=== PATIENT | female | born 1940 | race Caucasian/White ===

== ENCOUNTER 2022-03-15 15:44 | Inpatient (IN) | payer OTHER ==
[~2022-03-15] VITALS: Ht 160 cm; Wt 59.0 kg
[2022-03-15] VITALS (9 sets, daily range): BP systolic 80–143
--- NOTE | 2022-03-15 15:44 | NUR ---
BROUGHT IN BY [facility] AND [facility], PLACED IN BED #2 AND TRIAGED. REPORT GIVEN TO MURALI
--- NOTE | 2022-03-15 15:52 | NUR ---
EKG performed at BS. Physician given copy of EKG for review.
--- NOTE | 2022-03-15 15:53 | NUR ---
ER at bedside examining patient.
[2022-03-15] MEDS ORDERED: DORZ10DR9 EACH EYE (15:54)
[2022-03-15] MEDS ORDERED: XALEYE OP (15:54)
[2022-03-15] MEDS ORDERED: PRO40 PO (15:55)
[2022-03-15] MEDS ORDERED: FAMO40TA7 PO (15:55)
--- NOTE | 2022-03-15 15:55 | NUR ---
Stephane snider in [facility] - 03/15/22 at 1723 by [email or web address] Epi 1mg given IV push.
--- NOTE | 2022-03-15 15:55 | NUR ---
Epi 0.1mg given IV push.
[2022-03-15] MEDS ORDERED: SYN50 PO (15:57)
[2022-03-15] MEDS ORDERED: APIX2.5T PO (15:57)
[2022-03-15] MEDS ORDERED: AMIO200T66 PO (15:58)
[2022-03-15] MEDS ORDERED: METO5SOL PO (15:59)
[2022-03-15] MEDS ORDERED: FURO-149 PO (16:00)
[2022-03-15] MEDS ORDERED: EPINEPHrine JECT 0.1 MG/ML SYR IVP ONE (16:00)
--- NOTE | 2022-03-15 16:04 | NUR ---
Chest X-Ray being done at bedside.
--- NOTE | 2022-03-15 16:05 | NUR ---
Medication reconciliation completed with information provided by patient. Any prior medication reconciliation on file was reviewed and corrected.
--- NOTE | 2022-03-15 16:19 | NUR ---
vascular technologist sonographer at bedside.
--- NOTE | 2022-03-15 16:19 | NUR ---
Covid swab done and sent to lab.
[2022-03-15 16:36] LABS: BASOPHILS % (AUTO) 0.5 % (0.0-2.0); HEMOGLOBIN 10.4 g/dL (12.0-16.0); LYMPHOCYTES % (AUTO) 28.4 % (20.5-51.5); MEAN CORPUSCULAR HEMOGLOBIN 29 pg (27-31); MEAN CORPUSCULAR HGB CONC 32 % (32-36); MEAN CORPUSCULAR VOLUME 90 fL (79.0-98.0); MONOCYTES # (AUTO) 0.5 K/uL (0.0-1.0); MONOCYTES % (AUTO) 7.1 % (1.7-9.3); NEUTROPHILS # (AUTO) 4.6 K/uL (1.8-7.7); PLATELET COUNT (AUTO) 272 K/uL (130-430); RED BLOOD CELL COUNT(AUTO) 3.57 MIL/uL (4.2-6.2); RED CELL DISTRIBUTION WIDTH 18.2 % (9.0-15.0); WHITE BLOOD COUNT (AUTO) 7.2 K/uL (4.8-10.8)
[2022-03-15 16:41] LABS: ANION GAP 11 (5-15); CALCIUM 7.6 mg/dL (8.4-11.0); CHLORIDE 106 mmol/L (98-107); CREATININE 1.37 mg/dL (0.55-1.30); GLUCOSE 147 mg/dL (70-99); POTASSIUM 3.5 mmol/L (3.5-5.1); SODIUM SERUM 139 mmol/L (136-145); UREA NITROGEN, BLOOD 24 mg/dL (8-21)
--- NOTE | 2022-03-15 16:43 | NUR ---
EJ done on pt to right side using sterile technique by Dr. Matt and guided ultrasound. Pt is A&Ox4. Skin intact. No sob. Pt states she feels nauseous. HR at 40 and BP at 90/31, Placed pt on NC 6L and O2 saturation at 99%. Dr. Matt aware of vital signs. Pt moved to bed #1. All neuro checks within normal limits. Bed in lowest position.
[2022-03-15 16:45] LABS: PROTHROMBIN TIME 10.4 SECS (9.5-12.5)
[2022-03-15 17:04] LABS: ALANINE AMINOTRANSFERASE 70 U/L (12-78); ALBUMIN 3.2 g/dL (3.4-4.8); ASPARTATE AMINOTRANSFERASE 59 U/L (10-37); FREE T4 (FREE THYROXINE) 1.4 ng/dl (0.8-1.5); THYROID STIMULATING HORMONE 8.22 uIu/mL (0.36-3.74); TOTAL BILIRUBIN 0.3 mg/dL (0.0-1.0)
--- NOTE | 2022-03-15 17:37 | NUR ---
Admit bed requested Patient will be admitted to care of . Admitted to ICU unit. Diagnosis HeartBlock Inpatient (Yes or No) Yes Observation (Yes or No) No Orientation concerns or request close to nursing station (Yes or No) No Covid Status Negative On vent or bipap No Isolation requirements No Needs a sitter No From Home (Yes or if No enter name of facility) Yes Requires Dialysis (Yes or No) No Med Rec Completed (Yes of No) Yes
[2022-03-15] MEDS ORDERED: D5/0.45 NS 1,000 ML IV ONE (18:00)
--- NOTE | 2022-03-15 18:26 | NUR ---
Patient will be admitted to care of Dr. Scott. Admitted to ICU unit. Will go to room 2. Belongings list completed. Complete and up to date summary report printed. SBAR report to be given at bedside with opportunity for questions.
--- NOTE | 2022-03-15 18:35 | NUR ---
Stat consult called to Dr. Sully Scott's exchange.
--- NOTE | 2022-03-15 18:50 | NUR ---
Consult called to Dr. Mcguire who called back right away. Informed to continue to call cardiology as this is a cardiology issue and should respond to the consult to direct care.
--- NOTE | 2022-03-15 19:29 | NUR ---
ENDORSEMENT: REPORT GIVEN TO CHANTAL PRATT. DR. ALIYAH Gillette ( GEAR TOOTH GRINDING MACHINE OPERATOR) AT THE BEDSIDE.
[2022-03-15] MEDS ORDERED: DOPamine PREMIX 250 ML IV PRN (20:00)
[2022-03-15] MEDS ORDERED: ONDANSETRON HCL 4 MG/2 ML VIAL IVP PRN (21:15)
[2022-03-15] MEDS: ACETAMINOPHEN 325 MG TABLET PO PRN (22:03)
[2022-03-15] MEDS ORDERED: FUROSEMIDE 20 MG/2 ML VIAL ONE ×2 (22:35→23:40)
--- NOTE | 2022-03-15 22:38 | NUR ---
CALLED BY MEGGAN SUN ABOUT PT DESATURATION. PT EXHIBITED INCREASED ANXIETY AND CONTINUALLY REMOVED NASAL CANNULA. PT SATURATION DROPPED TO 85 AND SIMPLE MASK AT 10L. SATURATION STILL DID NOT STABLIZE AND PT CONTINUED TO DESAT. PT WAS THEN PLACED ON FLUSHED NRB AND LASIX WAS PUSHED TO HELP. WILL MONITOR PT FOR SATURATION.
[2022-03-15] MEDS ORDERED: FUROSEMIDE 20 MG/2 ML VIAL IVP ONE (22:45)
[2022-03-15] MEDS ORDERED: KETAMINE HCL 500 MG/10 ML VIAL ONE (23:17)
[2022-03-15] MEDS ORDERED: EPINEPHrine JECT 0.1 MG/ML SYR ONE (23:26)
[2022-03-15] MEDS ORDERED: EPINEPHrine HCL 1 MG/ML VIAL ONE ×2 (23:28→23:33)
[2022-03-15] MEDS ORDERED: FUROSEMIDE 40 MG/4 ML VIAL ONE (23:40)
[2022-03-16] VITALS (40 sets, daily range): BP systolic 96–142
[2022-03-16] MEDS ORDERED: EPINEPHrine HCL 10 MG in NS 240 ML IV PRN ×2 (00:15→14:00)
[2022-03-16] MEDS ORDERED: FUROSEMIDE 40 MG/4 ML VIAL IVP ONE (00:15)
[2022-03-16] MEDS ORDERED: MIDAZOLAM IN NACL,ISO-OSMOT/PF 100 ML IV PRN ×3 (00:15→07:00)
[2022-03-16] MEDS ORDERED: KETAMINE 30 MG/3 ML SYRINGE IVP ONE (00:15)
[2022-03-16] MEDS ORDERED: MORPHINE SULFATE IN 0.9 % NACL 100 ML IV PRN ×2 (00:15)
[2022-03-16] MEDS ORDERED: SUCCINYLCHOLINE CHLORIDE 20 MG/ML(QUELICIN) IVP ONE ×2 (00:15→09:00)
[2022-03-16] MEDS ORDERED: NALOXONE HCL 0.4 MG/ML AMP (NARCAN) IVP PRN ×3 (00:15→07:00)
[2022-03-16] MEDS ORDERED: MORPHINE SULFATE IN 0.9 % NACL 100 ML IV ONE (00:20)
[2022-03-16] MEDS ORDERED: MIDAZOLAM IN NACL,ISO-OSMOT/PF 100 ML IV ONE (00:22)
[2022-03-16] MEDS: LEVOTHYROXINE SODIUM 0.05 MG TABLET PO SCH ×2 (03:48→12:00)
[2022-03-16 06:33] LABS: BASOPHILS % (AUTO) 0.3 % (0.0-2.0); HEMATOCRIT 33.8 % (36-48); HEMOGLOBIN 10.9 g/dL (12.0-16.0); LYMPHOCYTES # (AUTO) 0.7 K/uL (1.0-5.5); LYMPHOCYTES % (AUTO) 6.2 % (20.5-51.5); MEAN CORPUSCULAR HEMOGLOBIN 29 pg (27-31); MEAN CORPUSCULAR HGB CONC 32 % (32-36); MEAN CORPUSCULAR VOLUME 89 fL (79.0-98.0); MONOCYTES % (AUTO) 8.1 % (1.7-9.3); NEUTROPHILS % (AUTO) 85.4 % (40.0-70.0); PLATELET COUNT (AUTO) 262 K/uL (130-430); RED BLOOD CELL COUNT(AUTO) 3.78 MIL/uL (4.2-6.2); WHITE BLOOD COUNT (AUTO) 11.7 K/uL (4.8-10.8)
[2022-03-16 06:47] LABS: ANION GAP 14 (5-15); CALCIUM 7.9 mg/dL (8.4-11.0); CHLORIDE 105 mmol/L (98-107); CREATININE 1.29 mg/dL (0.55-1.30); GLUCOSE 205 mg/dL (70-99); PHOSPHORUS 4.4 mg/dL (2.7-4.5); SODIUM SERUM 139 mmol/L (136-145); UREA NITROGEN, BLOOD 21 mg/dL (8-21)
--- NOTE | 2022-03-16 07:22 | NUR ---
RT NOTES FIO2 TO 0.60 PER ABG RESULT AND TITRATION ORDER. NO ADVERSE REACTIONS NOTED. WILL MONITOR PT. RN NOTIFIED
--- NOTE | 2022-03-16 07:33 | NUR ---
Assessed patient at bedside with stable vital signs. Patient is currently on sedation, pain and vasopressor medication IV continuous drips. Patient do not appear distressed or in pain. Lung sounds are clear on entry and diminished on bases. Patient is currently on transcutaneous pacer with MA 70 and 74 PPM.
[2022-03-16 07:35] LABS: POTASSIUM 3.9 mmol/L (3.5-5.1)
[2022-03-16] MEDS: PANTOPRAZOLE SODIUM 40 MG TAB PO SCH (09:00)
[2022-03-16] MEDS: APIXABAN 2.5 MG TABLET PO SCH ×2 (09:00→21:00)
--- NOTE | 2022-03-16 09:27 | NUR ---
RT NOTES FIO2 TO 0.40 per titration order. No adverse reactions noted. will monitor pt. RN aware.
[2022-03-16] MEDS ORDERED: THROMBIN (BOVINE) 5000 UNITS/ VIAL TP ONE (09:55)
[2022-03-16] MEDS: METOCLOPRAMIDE HCL 10 MG TABLET PO SCH ×2 (12:00→20:52)
[2022-03-16] MEDS: DORZOLAMIDE 2% OPHTHALMIC SOLN 5ML OP SCH ×2 (12:00→21:00)
[2022-03-16] MEDS: FAMOTIDINE 20 MG TABLET PO SCH (12:00)
--- NOTE | 2022-03-16 12:00 | NUR ---
pulled ett back 1cm from 21cm lip line to 20cm lip line
[2022-03-16] MEDS: MORPHINE SULFATE IN 0.9 % NACL 100 ML IV PRN (13:37)
[2022-03-16] MEDS: D5/0.45 NS 1,000 ML IV SCH (17:17)
[2022-03-16 17:39] LABS: PROTHROMBIN TIME 10.4 SECS (9.5-12.5)
--- NOTE | 2022-03-16 19:30 | NUR ---
RECEIVED REPORT ON PATIENT FROM [facility]. ASSUMED CARE, AND STARTED ASSESSMENT. PICC LINE NURSE IS AT THE BEDSIDE INSERTING A PICC LINE TO THE RIGHT UPPER ARM. tHE LINE WAS XRAYED AND OK'D FOR USE. WILL CONTINUE TO MONITOR AND ASSESS FOR SAFETY AND COMFORT.
[2022-03-16] MEDS: LATANOPROST 2.5 ML DROPS (XALATAN) OP SCH (21:00)
[2022-03-17] VITALS (42 sets, daily range): BP systolic 93–148
--- NOTE | 2022-03-17 04:00 | NUR ---
COMPLETE BED BATH AND LINEN CHANGE GIVEN. NO BOWEL MOVEMENT THIS SHIFT. WILL CONTINUE TO MONITOR AND ASSESS FRO SAFETY AND COMFORT.
--- NOTE | 2022-03-17 06:30 | NUR ---
DR PLEITEZ WAS AT THE BEDSIDE ASSESSING THE PATIENT. HE ORDERED THE PATIENT TO START ON TUBE FEEDING TODAY. i ASSURED HIM THAT I WOULD ENDORSE HIS WISHES TO THE ONCOMING DAY NURSE. WILL CONTINUE TO MONITOR AND ASSESS FRO SAFETY AND COMFORT.
[2022-03-17 06:37] LABS: BASOPHILS % (AUTO) 0.3 % (0.0-2.0); HEMATOCRIT 34.7 % (36-48); HEMOGLOBIN 11.3 g/dL (12.0-16.0); LYMPHOCYTES # (AUTO) 0.9 K/uL (1.0-5.5); LYMPHOCYTES % (AUTO) 10.8 % (20.5-51.5); MEAN CORPUSCULAR HEMOGLOBIN 29 pg (27-31); MEAN CORPUSCULAR HGB CONC 33 % (32-36); MEAN CORPUSCULAR VOLUME 90 fL (79.0-98.0); MONOCYTES # (AUTO) 1.1 K/uL (0.0-1.0); MONOCYTES % (AUTO) 13.1 % (1.7-9.3); NEUTROPHILS # (AUTO) 6.5 K/uL (1.8-7.7); NEUTROPHILS % (AUTO) 75.8 % (40.0-70.0); PLATELET COUNT (AUTO) 241 K/uL (130-430); RED BLOOD CELL COUNT(AUTO) 3.85 MIL/uL (4.2-6.2); RED CELL DISTRIBUTION WIDTH 18.2 % (9.0-15.0); WHITE BLOOD COUNT (AUTO) 8.5 K/uL (4.8-10.8)
[2022-03-17] MEDS: MORPHINE SULFATE IN 0.9 % NACL 100 ML IV PRN ×2 (07:10→18:48)
--- NOTE | 2022-03-17 07:15 | NUR ---
REPORT GIVEN TO [facility]. CARE WAS TURNED OVER.
--- NOTE | 2022-03-17 07:20 | NUR ---
Received SBAR report from outgoing Iron PRATT. Patient lying in bed with HOB elevated. Aspiration precautions rendered. ETT connected to ventilator with setting: AC 16, VT 400, FiO2 40%, Peep 5, Saturation 99%. With External pacer. PACED on monitor. NOt on any distress. STill NPO, with NGT. All extremities kept elevated. Repositioned Q2hrs rendered. F/C draining well via gravity. Will continue to monitor. Addendum: 03/17/22 at 1416 by [place] Trevon PRATT Ray Tong RN
[2022-03-17 07:21] LABS: ALANINE AMINOTRANSFERASE 72 U/L (12-78); ALBUMIN 2.7 g/dL (3.4-4.8); ANION GAP 11 (5-15); ASPARTATE AMINOTRANSFERASE 46 U/L (10-37); CALCIUM 7.3 mg/dL (8.4-11.0); CHLORIDE 109 mmol/L (98-107); CREATININE 1.09 mg/dL (0.55-1.30); GLUCOSE 164 mg/dL (70-99); PHOSPHORUS 3.4 mg/dL (2.7-4.5); POTASSIUM 3.4 mmol/L (3.5-5.1); SODIUM SERUM 143 mmol/L (136-145); TOTAL BILIRUBIN 0.3 mg/dL (0.0-1.0); UREA NITROGEN, BLOOD 18 mg/dL (8-21)
[2022-03-17] MEDS: PANTOPRAZOLE SODIUM 40 MG TAB PO SCH (08:34)
[2022-03-17] MEDS: METOCLOPRAMIDE HCL 10 MG TABLET PO SCH ×2 (08:34→21:23)
[2022-03-17] MEDS: FAMOTIDINE 20 MG TABLET PO SCH (08:34)
--- NOTE | 2022-03-17 09:00 | NUR ---
Paged Leta Stephens. regarding low potassium level. Received order : K-rider 40 mEq via IV x 1. All orders noted & carried out. Ray Tong RN
[2022-03-17] MEDS ORDERED: KCL 40 mEq in 100 mL (PREMIX) 100 ML IV ONE (09:15)
[2022-03-17] MEDS: DORZOLAMIDE 2% OPHTHALMIC SOLN 5ML OP SCH ×2 (10:08→21:23)
--- NOTE | 2022-03-17 12:38 | NUR ---
Dietitian Recommendations * Vital AF 1.2 at 45 ml/hr (goal rate), Free Water Flush: 200 ml Q6h via NGT Provides: 1296 kcal/day, 81 gm protein/day, and 1676 ml free water/day Meets: 111% of estimated caloric needs and 105% of lower end of estimated protein needs * Consider D/C D5%NS IV at 50 ml/hr to improve glycemic control LP, RD Please refer to Nutrition Assessment for details. Addendum: 03/17/22 at [address] Amended: Links added.
[2022-03-17] MEDS: D5/0.45 NS 1,000 ML IV SCH (14:23)
--- NOTE | 2022-03-17 15:00 | NUR ---
Discontinued Right IJ central line. Pressure applied. No Bleeding observed. Kept clean and dry. Ray Tong RN
--- NOTE | 2022-03-17 17:25 | NUR ---
PAGED SHAHBAZ LEWIS REGARDING FREQUENT HEART BLOCK OBSERVED ON MONITOR. PER DR. LY, CONTINUE HOLDING ELIQUIS UNTIL 03/18/22 FOR PACEMAKER PLACEMENT. NPO AFTER MIDNIGHT. TURN THE EXTERNAL PACER OFF. ONLY PUT PATIENT ON EXTERNAL PACER IF HR IS BELOW. SHERRY MARTINEZ RN
[2022-03-17] MEDS ORDERED: EPINEPHrine HCL 1 MG/ML VIAL ONE (19:12)
--- NOTE | 2022-03-17 19:15 | NUR ---
RECEIVED REPORT FROM [facility], ASSUMED CARE AND STARTED ASSESSMENT.
[2022-03-17] MEDS ORDERED: EPINEPHrine HCL 5 MG in NS 245 ML IV PRN (19:30)
--- NOTE | 2022-03-17 19:45 | NUR ---
Received an order from Mela Stephens for Epinephrine 5mg/250mL concentration IV drip. Orders noted & carried out.
--- NOTE | 2022-03-17 20:00 | NUR ---
TURNED AND REPOSITIONED PATIENT TO THE SUPINE POSITION. WILL CONTINUE TO MONITOR AND ASSESS FOR SAFETY AND COMFORT.
[2022-03-17] MEDS: LATANOPROST 2.5 ML DROPS (XALATAN) OP SCH (21:00)
--- NOTE | 2022-03-17 22:00 | NUR ---
TURNED AND REPOSITIONED PATIENT TO HE RIGHT SIDE.
[2022-03-18] VITALS (32 sets, daily range): BP systolic 110–146
--- NOTE | 2022-03-18 | NUR ---
TUBE FEEDING TURNED OFF PER NPO AFTER MIDNIGHT ORDERS. ONE 250 ML FLUSH OF FREE WATER GIVEN PER NG TUBE. TURNED AND REPOSITIONED PATIENT TO THE LEFT SIDE. WILL CONTINUE TO MONITOR AND ASSESS FOR SAFETY AND COMFORT.
--- NOTE | 2022-03-18 02:00 | NUR ---
TURNED AND REPOSITIONED PATIENT TO THE SUPINE POSITION. WILL CONTINUE TO MONITOR AND ASSESS FOR SAFETY AND COMFORT.
--- NOTE | 2022-03-18 04:00 | NUR ---
TURNED AND REPOSITIONED PT TO THE LEFT SIDE.
--- NOTE | 2022-03-18 06:00 | NUR ---
TURNED AND REPOSITIONED PT TO THE RIGHT SIDE.
[2022-03-18 06:46] LABS: BASOPHILS % (AUTO) 0.4 % (0.0-2.0); HEMATOCRIT 33.9 % (36-48); HEMOGLOBIN 11.1 g/dL (12.0-16.0); LYMPHOCYTES # (AUTO) 0.6 K/uL (1.0-5.5); LYMPHOCYTES % (AUTO) 9.3 % (20.5-51.5); MEAN CORPUSCULAR HEMOGLOBIN 29 pg (27-31); MEAN CORPUSCULAR HGB CONC 33 % (32-36); MEAN CORPUSCULAR VOLUME 90 fL (79.0-98.0); MONOCYTES # (AUTO) 0.6 K/uL (0.0-1.0); MONOCYTES % (AUTO) 10.8 % (1.7-9.3); NEUTROPHILS # (AUTO) 4.8 K/uL (1.8-7.7); NEUTROPHILS % (AUTO) 79.5 % (40.0-70.0); PLATELET COUNT (AUTO) 212 K/uL (130-430); RED BLOOD CELL COUNT(AUTO) 3.78 MIL/uL (4.2-6.2); RED CELL DISTRIBUTION WIDTH 18.3 % (9.0-15.0)
[2022-03-18 07:00] LABS: ANION GAP 9 (5-15); CALCIUM 7.4 mg/dL (8.4-11.0); CHLORIDE 111 mmol/L (98-107); CREATININE 0.81 mg/dL (0.55-1.30); GLUCOSE 166 mg/dL (70-99); POTASSIUM 4.1 mmol/L (3.5-5.1); SODIUM SERUM 143 mmol/L (136-145); UREA NITROGEN, BLOOD 18 mg/dL (8-21)
--- NOTE | 2022-03-18 07:27 | NUR ---
REPORT GIVEN TO [facility], AND CARE WAS TURNED OVER.
[2022-03-18] MEDS: DORZOLAMIDE 2% OPHTHALMIC SOLN 5ML OP SCH ×2 (08:04→22:01)
[2022-03-18] MEDS: MORPHINE SULFATE IN 0.9 % NACL 100 ML IV PRN (09:06)
[2022-03-18] MEDS ORDERED: CEFAZOLIN 2 GM IVPB PREMIX 50 ML IV ONE (10:00)
[2022-03-18] MEDS ORDERED: SEVOFLURANE 15 MIN GAS INH ONE (10:30)
[2022-03-18] MEDS ORDERED: CEFAZOLIN 1 GM IVPB PREMIX 50 ML IV ONE (10:30)
[2022-03-18] MEDS ORDERED: NS 100 ML BAG ONE (10:30)
[2022-03-18] MEDS ORDERED: NS IRRIG SOLN 1000 ML IR ONE (10:30)
[2022-03-18] MEDS ORDERED: [UNRECOGNIZED DRUG - OTHER] INJ ONE (10:30)
--- NOTE | 2022-03-18 10:31 | NUR ---
1025 ASSISTED IN TRANSFERRING PT TO O.R. BAGGED PT ON 10L. SAT 96%. Addendum: 03/18/22 at 1033 by Ashwini Guerrero RT Amended: Links added.
[2022-03-18] MEDS ORDERED: iohexoL 180 mgI/mL, 20 ML VIAL IT ONE (11:13)
[2022-03-18] MEDS ORDERED: METOCLOPRAMIDE HCL 10 MG/2 ML VIAL IVP PRN (11:45)
[2022-03-18] MEDS ORDERED: fentaNYL CITRATE/PF 100 MCG/2 ML AMP IVP PRN ×2 (11:45)
[2022-03-18] MEDS ORDERED: ONDANSETRON HCL 4 MG/2 ML VIAL IVP PRN (11:45)
--- NOTE | 2022-03-18 12:47 | NUR ---
1235 assisted in transferring pt back to icu. placed on vent same settings, fio2 @100% per dr zepeda, will titrate. Addendum: 03/18/22 at 1248 by Ashwini Guerrero RT Amended: Links added.
[2022-03-18] MEDS: METOCLOPRAMIDE HCL 10 MG TABLET PO SCH ×2 (14:39→21:00)
[2022-03-18] MEDS: PANTOPRAZOLE SODIUM 40 MG TAB PO SCH (14:39)
[2022-03-18] MEDS: LEVOTHYROXINE SODIUM 0.05 MG TABLET PO SCH (14:41)
--- NOTE | 2022-03-18 14:49 | NUR ---
0800: RECEIVED PATIENT INTUBATED, SEDATED, IV DRIP EPINEPHRINE AND MORPHINE SULFATE, WILL CONTINUE TO MONITOR AND TITRATE PRN. ABDOMEN SOFT AND NON-DISTENDED, POSITIVE BOWEL SOUND X 4 NO N/V OR DIARRHEA NOTED. SKIN WARM AND DRY INTACT. NPO FOR NOW FOR PACEMAKER INSERTION TODAY. 1020: PATIENT LEFT THE UNIT ACCOMPANIED BY OR STAFF, NO S/S OF ANY DISTRESS NOTED. 1350: BACK FROM SURGERY WITH NEW PACEMAKER LEFT UPPER CHEST WITH SOME BRUISING AND HEMATOMA @ THE SITE, WILL APPLY ICE PACK AND SAND BAG TO HELP STOP SWELLING. WILL CONTINUE TO MONITOR SITE FOR ANY BLEEDING OR INCREASING SWELLING.
--- NOTE | 2022-03-18 16:02 | NUR ---
ETT was moved Q4 hours secure and patent. Addendum: 03/18/22 at 1602 by Ashwini Guerrero RT Amended: Links added.
--- NOTE | 2022-03-18 16:03 | NUR ---
@1600 fio2 titrated to 50% per RN. Addendum: 03/18/22 at 1604 by Ashwini Guerrero RT Amended: Links added.
--- NOTE | 2022-03-18 17:27 | NUR ---
@1721 Titrated Fio2 to 40% pt. sat 97% will cont.to monitor. Addendum: 03/18/22 at 1728 by Ashwini Guerrero RT Amended: Links added.
[2022-03-18] MEDS: D5/0.45 NS 1,000 ML IV SCH (19:00)
--- NOTE | 2022-03-18 20:02 | NUR ---
1230: PATIENT BACK FROM SURGERY WITH NEW PACEMAKER LEFT UPPER CHEST WITH NOTED BRUISING AND HEMATOMA @ SITE NOTED. WILL APPLY ICE AND SANDBAG AND CONTINUE TO MONITOR PATIENT PRN FOR ANY BLEEDING OR DISCHARGE FROM SITE. IV EPINEPHRINE WAS D'CD BY DR. CAMACHO. RESTARTED FEEDING VIA NG-TUBE BEFORE. 1400: BRUISING AND HEMATOMA @ SITE IMPROVED EVIDENCE BY DECREASE IN SWELLING. WILL CONTINUE TO MONITOR PATIENT AND INTERVENE PRN. TOLERATED TUBE FEEDING WELL 1800: PATIENT REMAINED COMFORTABLE W/O ANY CHANGE IN LOC. 2000: ENDORSED PATIENT TO PM SHIFT NURSE. PATIENT HAD REMAINED COMFORTABLE. PACEMAKER SITE REMAINED FREE OF ANY BLEEDING OR DISCHARGE
[2022-03-18] MEDS: LATANOPROST 2.5 ML DROPS (XALATAN) OP SCH (21:00)
[2022-03-19] VITALS (28 sets, daily range): BP systolic 97–163
[2022-03-19] MEDS: LORazepam 2 MG/ML VIAL IVP PRN (02:03)
[2022-03-19] MEDS: D5/0.45 NS 1,000 ML IV SCH (04:45)
--- NOTE | 2022-03-19 06:00 | NUR ---
1999--599--PT CONT WITH STABLE VS. PT HAS BEEN IN SR/NO ECTOPY. PT OPENS EYES/PERRLA- BUT DOESN'T FOLLOW SIMPLE COMMDS AND ATTEMPTS TO GET OUT OF BED. SOFT RESTRNTS INTACT. PT HAS ETT INTACT TO VENT. PT CANDACE WEL WITH POX OF 97-93%. FIO2 WAS INCREASED TO 55% EARLIER BY RTX ARNOLD DUE PT HAVING LOWER POX OF 90%. FIO2 BACK TO 40% THIS AM. PT HAS REDNESS ON LEFT SIDE OF UPPER CHEST. COLD COMPRESS APPLIED. PT HAS BEEN ON MORPHINE DRIP FOR COMFORT-AT 1MG/HR. PT ALSO HAS IV I/P VIA RIGHT ARM PICC-LINE. PT HAS NGT I/P. PT CANDACE WELL WITH RESID OF 5CC. F/C I/P-U/O [id number]. NO STOOL. BATH AND LINEN CHANGE DONE. ORAL CARE GIVEN ALSO. PT WAS ALSO MED ATIVAN 1MG IVP FOR AGITATION AT APROX 0500. PT SLEEPING QUIETLY AFTER MED. CXR DONE. GEN COND HAS BEEN STABLE. PT ENDORSED TO TASNEEM KIMBLE RN
[2022-03-19] MEDS: LEVOTHYROXINE SODIUM 0.05 MG TABLET PO SCH (06:31)
[2022-03-19 07:00] LABS: BASOPHILS % (AUTO) 0.1 % (0.0-2.0); HEMATOCRIT 28.6 % (36-48); HEMOGLOBIN 9.3 g/dL (12.0-16.0); LYMPHOCYTES # (AUTO) 0.6 K/uL (1.0-5.5); LYMPHOCYTES % (AUTO) 9.1 % (20.5-51.5); MEAN CORPUSCULAR HEMOGLOBIN 29 pg (27-31); MEAN CORPUSCULAR HGB CONC 33 % (32-36); MEAN CORPUSCULAR VOLUME 90 fL (79.0-98.0); MONOCYTES # (AUTO) 0.9 K/uL (0.0-1.0); MONOCYTES % (AUTO) 14.1 % (1.7-9.3); NEUTROPHILS # (AUTO) 4.8 K/uL (1.8-7.7); NEUTROPHILS % (AUTO) 76.7 % (40.0-70.0); PLATELET COUNT (AUTO) 159 K/uL (130-430); RED BLOOD CELL COUNT(AUTO) 3.18 MIL/uL (4.2-6.2); RED CELL DISTRIBUTION WIDTH 18.1 % (9.0-15.0); WHITE BLOOD COUNT (AUTO) 6.3 K/uL (4.8-10.8)
--- NOTE | 2022-03-19 07:30 | NUR ---
This RN, Fina New, received SBAR report at bedside from night RN Megan. Pt intubated, sedated. Bed in low locked position.
[2022-03-19 07:35] LABS: ANION GAP 7 (5-15); CALCIUM 7.7 mg/dL (8.4-11.0); CHLORIDE 114 mmol/L (98-107); CREATININE 0.71 mg/dL (0.55-1.30); GLUCOSE 134 mg/dL (70-99); POTASSIUM 3.7 mmol/L (3.5-5.1); SODIUM SERUM 145 mmol/L (136-145); UREA NITROGEN, BLOOD 24 mg/dL (8-21)
[2022-03-19] MEDS: METOCLOPRAMIDE HCL 10 MG TABLET PO SCH ×2 (09:02→21:19)
[2022-03-19] MEDS: PANTOPRAZOLE SODIUM 40 MG TAB PO SCH (09:02)
--- NOTE | 2022-03-19 09:20 | NUR ---
Spoke with Dr. Mcguire, gave ABG results. Telephone orders for CPAP weaning parameters. RT aware.
[2022-03-19] MEDS: DORZOLAMIDE 2% OPHTHALMIC SOLN 5ML OP SCH ×2 (10:12→21:20)
--- NOTE | 2022-03-19 11:18 | NUR ---
1046 WEANING PARAMETERS NIF40 RSBI 27 VC 533 Addendum: 03/19/22 at 1119 by Ashwini Guerrero RT Amended: Links added.
--- NOTE | 2022-03-19 11:45 | NUR ---
Spoke with Dr. Mcguire, received telephone order for extubation and maintain oxygen saturation >92%. RT aware.
--- NOTE | 2022-03-19 12:33 | NUR ---
1230 pt extubated per Ashwini RT. Pt minimally coughing. Pt oxygen saturation 93% on 15 LPM via non rebreather. RT at bedside.
[2022-03-19] MEDS ORDERED: RACEPINEPHRINE HCL 0.5 ML VIAL.NEB INH ONE ×2 (12:44→13:00)
--- NOTE | 2022-03-19 12:45 | NUR ---
Updated Dr. Mcguire on pt status. Received telephone orders. RT aware.
[2022-03-19] MEDS ORDERED: DEXAMETHASONE SOD PHOSPHATE 10 MG/ML VIAL IVP ONE (13:00)
[2022-03-19] MEDS ORDERED: IPRATROPIUM/ALBUTEROL SULFATE 3 ML AMPUL.NEB (DUONEB) ONE (13:06)
[2022-03-19] MEDS ORDERED: FUROSEMIDE 40 MG/4 ML VIAL IVP ONE (14:00)
--- NOTE | 2022-03-19 14:12 | NUR ---
[address] ORDER. BUSH NOTED, RACEMIC EPI GIVEN, DUONED GIVEN POST. PT ON 100% NRB, SAT 93%. HR 86 RR 28. Addendum: 03/19/22 at 1415 by Ashwini Guerrero RT Amended: Links added.
[2022-03-19] MEDS ORDERED: IBUPROFEN 600 MG TABLET PO PRN (14:15)
--- NOTE | 2022-03-19 14:15 | NUR ---
1340 CARDIAC WHEEZE NOTED. PT PLACED ON BIPAP 10/6 F [address] KLAUDIA OLIVO, RACEMIC EPI IN 3 HOURS, RN AWARE. HR 89 RR 25 SAT93%. WILL CONT TO MONITOR. Addendum: 03/19/22 at 1418 by Ashwini Guerrero RT Amended: Links added.
[2022-03-19] MEDS: ACETAMINOPHEN 325 MG TABLET PO PRN (15:04)
[2022-03-19] MEDS: IPRATROPIUM/ALBUTEROL SULFATE 3 ML AMPUL.NEB (DUONEB) INH SCH ×3 (15:31→22:25)
[2022-03-19] MEDS: LATANOPROST 2.5 ML DROPS (XALATAN) OP SCH (21:00)
[2022-03-20] VITALS (31 sets, daily range): BP systolic 77–169
[2022-03-20] MEDS: D5/0.45 NS 1,000 ML IV SCH ×2 (00:45→09:49)
[2022-03-20] MEDS: IPRATROPIUM/ALBUTEROL SULFATE 3 ML AMPUL.NEB (DUONEB) INH SCH ×6 (03:40→23:10)
[2022-03-20] MEDS: ACETAMINOPHEN 325 MG TABLET PO PRN (05:57)
--- NOTE | 2022-03-20 06:00 | NUR ---
--PT CONT WITH STABLE VS. PT HAS BEEN AFEBRILE. PT HAS BEEN IN SR/NO ECTOPY-OCCASS. S.TACH. PT HAS BEEN A/OX 2-3 WITH LANG. BARRIER-SPAN SPKG. PT HAS SURG WOUND FROM PACER INSERTION-D/I WITH TRANSPARENT DRSG. PT HAS C/O PAIN AT TIMES. PT MED WITH MOTRIN OR TYLENOL FOR S/S OF PAIN. IV I/P VIA RIGHT ARM PICC-LINE. BATH AND LINEN CHANGE DONE. SKIN IS INTACT. PT HAS BEEN SLEEPING OFF AND ON. PT HAS F/C. U/O IS 400CC/ELSIE-CLR. AM LABS PENDING. PT CONT. ON CPAP. WITH POX 0F 92-95%. ABG ORD. FOR THIS AM PT IS TACHEPNIC AT TIMES. FAMILIA FERNANDES INFORMED EARLIER AND C.NURSE LASHAUN PRATT. PT HAS HAD LABORED RESPS. PT HAD ORDERS FROM DR. MCKEON TO INTUBATE BUT C.NURSE WILKS AND RTX BRISEYDA STATED PT SEEMS TO BE CANDACE CPAP WELL WITH POX OF 93%. AM LABS PENDING. PT ENDORSED TO [facility]. SHYANNE PRATT
[2022-03-20] MEDS: LEVOTHYROXINE SODIUM 0.05 MG TABLET PO SCH ×3 (06:31→06:37)
[2022-03-20 06:44] LABS: BASOPHILS % (AUTO) 0.1 % (0.0-2.0); EOSINOPHILS % (AUTO) 0.1 % (0.0-4.0); HEMATOCRIT 35.1 % (36-48); HEMOGLOBIN 11.3 g/dL (12.0-16.0); LYMPHOCYTES # (AUTO) 0.7 K/uL (1.0-5.5); LYMPHOCYTES % (AUTO) 6.4 % (20.5-51.5); MEAN CORPUSCULAR HEMOGLOBIN 29 pg (27-31); MEAN CORPUSCULAR HGB CONC 32 % (32-36); MEAN CORPUSCULAR VOLUME 91 fL (79.0-98.0); MONOCYTES # (AUTO) 0.8 K/uL (0.0-1.0); MONOCYTES % (AUTO) 6.9 % (1.7-9.3); NEUTROPHILS # (AUTO) 9.6 K/uL (1.8-7.7); NEUTROPHILS % (AUTO) 86.5 % (40.0-70.0); PLATELET COUNT (AUTO) 201 K/uL (130-430); RED BLOOD CELL COUNT(AUTO) 3.88 MIL/uL (4.2-6.2); RED CELL DISTRIBUTION WIDTH 18.3 % (9.0-15.0); WHITE BLOOD COUNT (AUTO) 11.1 K/uL (4.8-10.8)
[2022-03-20 07:02] LABS: ALANINE AMINOTRANSFERASE 37 U/L (12-78); ALBUMIN 2.3 g/dL (3.4-4.8); ANION GAP 10 (5-15); ASPARTATE AMINOTRANSFERASE 40 U/L (10-37); CALCIUM 7.9 mg/dL (8.4-11.0); CHLORIDE 110 mmol/L (98-107); CREATININE 0.79 mg/dL (0.55-1.30); GLUCOSE 137 mg/dL (70-99); PHOSPHORUS 2.7 mg/dL (2.7-4.5); SODIUM SERUM 146 mmol/L (136-145); TOTAL BILIRUBIN 0.7 mg/dL (0.0-1.0); UREA NITROGEN, BLOOD 23 mg/dL (8-21)
--- NOTE | 2022-03-20 07:30 | NUR ---
Received pt in bed, arousable and asking for water with BIPAP in place 09/19/90%. Sats 95%. Pt is SOB with Resp rate high 20's- 30's. Pt looks uncomfortable sitting up in bed. SR on monitor with some paced beats noted. Left chest incision without drainage and intact. PT has AN NG clamped. Right arm PICC line with both ports flushing well. Sores noted to chest where external pacemaker pads were placed. Berger cath in place with candelaria urine in bag.
[2022-03-20] MEDS ORDERED: MIDAZOLAM HCL 5 MG/5 ML VIAL ONE (08:17)
--- NOTE | 2022-03-20 08:25 | NUR ---
Dr. Watson in to see pt and requested intubation. She tried to call the family prior to procedure but the number on the facesheet was disconnected. Pt intubated with a 7.5 ET first pass without problems. Pt placed on vent AC 16/400/100%/p5. Etomidate 20 mg and rocuronium 50 mg IVP given prior to procedure. Restraints placed on patient as this time to prevent pulling out ET.
[2022-03-20] MEDS ORDERED: PANTOPRAZOLE SODIUM 40 MG/VIAL (PROTONIX) IVP ONE (09:00)
[2022-03-20] MEDS: METOCLOPRAMIDE HCL 10 MG TABLET PO SCH ×2 (09:45→20:53)
[2022-03-20] MEDS: PROPOFOL DRIP 100 ML IV PRN (09:48)
--- NOTE | 2022-03-20 09:54 | NUR ---
Call out to Dr. Watson to report abg's.
[2022-03-20] MEDS ORDERED: SODIUM BICARBONATE 8.4% JECT 50 MEQ/50 ML SYRINGE IVP ONE (10:00)
--- NOTE | 2022-03-20 10:00 | NUR ---
Spoke with Dr. Watson and reported ABG's. Orders received. RT aware of vent changes.
--- NOTE | 2022-03-20 10:20 | NUR ---
RT at bedside to push down ET 1.5cm as ordered by Dr. Watson.
--- NOTE | 2022-03-20 10:20 | NUR ---
RT NOTE: 1020 Advanced ETT 1.5cm, ET was from 21cm to 22.5cm at the teeth. Increased rate to 20 and Vt to [address] Watson's order. Titrated FiO2 to 90%. Patient tolerating changes well. RN Blanca aware of changes. Will continue to wean FiO2 as tolerated by patient.
--- NOTE | 2022-03-20 10:25 | NUR ---
One amp of bicarb given IV.
[2022-03-20] MEDS: DORZOLAMIDE 2% OPHTHALMIC SOLN 5ML OP SCH ×2 (10:27→20:52)
--- NOTE | 2022-03-20 10:30 | NUR ---
Report given to RN to assume care of the patient.
[2022-03-20] MEDS ORDERED: POTASSIUM CHLORIDE 40 MEQ, LIDOCAINE JECT 2% PF 100 MG 75 MG in NS 250 ML IV PRN (10:45)
--- NOTE | 2022-03-20 12:05 | NUR ---
RT NOTE: 1205 Pt SpO2 was low to mid 80s despite FiO2 titration. Placed on PC 15, f 20, PEEP 5, FiO2 100% and SpO2 responding well. Will continue to titrate FiO2 per SpO2. S[facility] R[facility] double checked with Dr Watson and Dr taylor ok with the settings. 1305 Decreased FiO2 to 90%. Pt tolerating change well. S[facility] Rios aware of changes. Addendum: 03/20/22 at 1330 by Eufemia Murillo RT Amended: Links added.
[2022-03-20] MEDS ORDERED: NS 500 ML IV ONE ×2 (12:15→17:45)
--- NOTE | 2022-03-20 12:35 | NUR ---
Esdras, pts nephew in to visit. I pad used for chair maker. Plan of care discussed. nutrition worker was present also.
--- NOTE | 2022-03-20 12:57 | NUR ---
GANTRY RIGGER LEASES AND LAND SUPERVISOR Lina received a social work consult request from ICU to address need to obtain "Decision Maker" for patient LEASES AND LAND SUPERVISOR met at patient's bedside with TUTOR COORDINATOR Anai, TUTOR COORDINATOR Roro, patient's nephew Esdras Amin and his spouse. Utilizing [employer] ([employer] translation services in [place], patient's nephew Esdras was able to place patient's oldest living sibling, Kameron Amin, on the speaker phone and he provided verbal consent to allow nephew Esdras Amin to be the decision maker for the patient at this time. Esdras Amin stated at this time he'd like the patient to continue to be FULL CODE LEASES AND LAND SUPERVISOR will continue to be available as needed
--- NOTE | 2022-03-20 13:26 | NUR ---
Spoke to and informed her of the patient desaturating to the low 80"s with a good pulse ox waveform. ALso mentioned pt was placed on PC15/R20/100%/p5 and she said that is fine. Pt currently saturating 95%. BP 93/53 after 500cc NS bolus given.
[2022-03-20] MEDS ORDERED: NALOXONE HCL 0.4 MG/ML AMP (NARCAN) IVP PRN (15:30)
[2022-03-20] MEDS: MIDAZOLAM IN NACL,ISO-OSMOT/PF 100 ML IV PRN (15:50)
[2022-03-20] MEDS: MORPHINE SULFATE IN 0.9 % NACL 100 ML IV PRN (15:56)
--- NOTE | 2022-03-20 16:40 | NUR ---
ST EVALUATION COMPLETED. ST TX NOT INDICATED AT THIS TIME. RECOMMEND CONTINUE NPO WITH ALTERNATIVE MEANS OF NUTRITION DUE TO POOR SWALLOW FUNCTION AND SAFETY.
--- NOTE | 2022-03-20 17:20 | NUR ---
SPOKE WITH DR GRAY. ADVISED BP IN THE 70'S, MAP IN THE 50'S AFTER VERSED AND MORPHINE BEING STARTED AND PROPOFOL BEING DISCONTINUED. ORDERED LEVOPHED, 500ML BOLUS NS NOW, HYDROCORTISONE 100 MG Q6H, VANCO AND ZOSYN, SPUTUM CULTURE, BLOOD CULTURE x2, CP MONITORING.
[2022-03-20] MEDS ORDERED: NOREPINEPHRINE 4 MG/4 ML VIAL IV ONE (17:26)
--- NOTE | 2022-03-20 19:30 | NUR ---
Endorsed CVP monitoring set up to oncoming shift. Still waiting for a pressure bag.
[2022-03-20] MEDS: VANCOMYCIN HCL 750 MG in NS 250 ML IV SCH (20:46)
[2022-03-20] MEDS: PIPERACILLIN/TAZOBACTAM 2.25 GM/ DEX-IS 50 ML PREMIX IV SCH (20:47)
[2022-03-20] MEDS: HYDROCORTISONE SOD SUCC 100 MG/2 ML VIAL IVP SCH (20:48)
[2022-03-20] MEDS: LATANOPROST 2.5 ML DROPS (XALATAN) OP SCH (20:53)
[2022-03-20] MEDS ORDERED: PIPERACILLIN/TAZOBACTAM 3.375 GM/ DEX-IS 50 ML PREMIX IV SCH (22:00)
[2022-03-21] VITALS (33 sets, daily range): BP systolic 71–132
[2022-03-21] MEDS: MIDAZOLAM IN NACL,ISO-OSMOT/PF 100 ML IV PRN ×2 (00:50→14:52)
[2022-03-21] MEDS: HYDROCORTISONE SOD SUCC 100 MG/2 ML VIAL IVP SCH ×4 (03:14→21:03)
[2022-03-21] MEDS: IPRATROPIUM/ALBUTEROL SULFATE 3 ML AMPUL.NEB (DUONEB) INH SCH ×6 (03:40→23:08)
[2022-03-21] MEDS: MORPHINE SULFATE IN 0.9 % NACL 100 ML IV PRN ×2 (03:52→22:50)
[2022-03-21] MEDS: PIPERACILLIN/TAZOBACTAM 2.25 GM/ DEX-IS 50 ML PREMIX IV SCH ×3 (05:40→21:03)
[2022-03-21] MEDS: LEVOTHYROXINE SODIUM 0.05 MG TABLET PO SCH (06:09)
[2022-03-21 06:21] LABS: BASOPHILS % (AUTO) 0.1 % (0.0-2.0); HEMATOCRIT 32.2 % (36-48); HEMOGLOBIN 10.4 g/dL (12.0-16.0); LYMPHOCYTES # (AUTO) 0.5 K/uL (1.0-5.5); LYMPHOCYTES % (AUTO) 3.8 % (20.5-51.5); MEAN CORPUSCULAR HEMOGLOBIN 29 pg (27-31); MEAN CORPUSCULAR HGB CONC 32 % (32-36); MEAN CORPUSCULAR VOLUME 89 fL (79.0-98.0); MONOCYTES # (AUTO) 1.1 K/uL (0.0-1.0); MONOCYTES % (AUTO) 8.1 % (1.7-9.3); NEUTROPHILS # (AUTO) 11.5 K/uL (1.8-7.7); PLATELET COUNT (AUTO) 188 K/uL (130-430); RED CELL DISTRIBUTION WIDTH 17.9 % (9.0-15.0); WHITE BLOOD COUNT (AUTO) 13.1 K/uL (4.8-10.8)
[2022-03-21 06:35] LABS: ANION GAP 7 (5-15); CALCIUM 7.3 mg/dL (8.4-11.0); CHLORIDE 116 mmol/L (98-107); CREATININE 0.66 mg/dL (0.55-1.30); GLUCOSE 163 mg/dL (70-99); POTASSIUM 4.2 mmol/L (3.5-5.1); SODIUM SERUM 148 mmol/L (136-145); UREA NITROGEN, BLOOD 29 mg/dL (8-21)
[2022-03-21] MEDS: METOCLOPRAMIDE HCL 10 MG TABLET PO SCH ×2 (08:19→21:04)
[2022-03-21] MEDS: PANTOPRAZOLE SODIUM 40 MG/VIAL (PROTONIX) IVP SCH (08:19)
--- NOTE | 2022-03-21 08:30 | NUR ---
DR GRAY AT BEDSIDE ADVISED BLOOD SUGAR IS 163. ORDERED TO D/C D5 1/2 NS. ORDERED NS AT 50MLS/HR.
[2022-03-21] MEDS: DORZOLAMIDE 2% OPHTHALMIC SOLN 5ML OP SCH ×2 (08:59→21:04)
[2022-03-21] MEDS: NACL 0.9% 1,000 ML IV SCH (09:09)
--- NOTE | 2022-03-21 10:02 | NUR ---
PAGED DR GRAY RE CRITICAL ABG RESULTS.
--- NOTE | 2022-03-21 11:27 | NUR ---
PAGED DR WHITE TO ADVISE BLOOD IN URINE.
--- NOTE | 2022-03-21 11:30 | NUR ---
SPOKE WITH DR WHITE. ADVISED BLOOD IN URINE. ORDERED UA, AND ULTRASOUND OF BLADDER AND KIDNEYS. N
[2022-03-21] MEDS: NOREPINEPHRINE BITARTRATE 4 MG in NS 246 ML IV PRN ×2 (12:20→22:49)
[2022-03-21] MEDS: VANCOMYCIN HCL 750 MG in NS 250 ML IV SCH (18:33)
[2022-03-21] MEDS: LATANOPROST 2.5 ML DROPS (XALATAN) OP SCH (21:04)
[2022-03-22] VITALS (30 sets, daily range): BP systolic 96–156
[2022-03-22] MEDS: HYDROCORTISONE SOD SUCC 100 MG/2 ML VIAL IVP SCH ×2 (02:53→21:22)
[2022-03-22] MEDS: IPRATROPIUM/ALBUTEROL SULFATE 3 ML AMPUL.NEB (DUONEB) INH SCH ×6 (04:10→22:56)
[2022-03-22] MEDS: PIPERACILLIN/TAZOBACTAM 2.25 GM/ DEX-IS 50 ML PREMIX IV SCH ×3 (05:27→21:28)
[2022-03-22] MEDS: MIDAZOLAM IN NACL,ISO-OSMOT/PF 100 ML IV PRN (05:32)
[2022-03-22] MEDS: NACL 0.9% 1,000 ML IV SCH (05:33)
[2022-03-22] MEDS: LEVOTHYROXINE SODIUM 0.05 MG TABLET PO SCH (06:05)
[2022-03-22 07:06] LABS: BASOPHILS % (AUTO) 0.3 % (0.0-2.0); HEMATOCRIT 30.9 % (36-48); HEMOGLOBIN 9.8 g/dL (12.0-16.0); LYMPHOCYTES # (AUTO) 0.3 K/uL (1.0-5.5); LYMPHOCYTES % (AUTO) 2.3 % (20.5-51.5); MEAN CORPUSCULAR HEMOGLOBIN 29 pg (27-31); MEAN CORPUSCULAR HGB CONC 32 % (32-36); MEAN CORPUSCULAR VOLUME 91 fL (79.0-98.0); MONOCYTES # (AUTO) 0.9 K/uL (0.0-1.0); MONOCYTES % (AUTO) 6.8 % (1.7-9.3); NEUTROPHILS # (AUTO) 12.5 K/uL (1.8-7.7); NEUTROPHILS % (AUTO) 90.6 % (40.0-70.0); PLATELET COUNT (AUTO) 168 K/uL (130-430); RED CELL DISTRIBUTION WIDTH 18.9 % (9.0-15.0); WHITE BLOOD COUNT (AUTO) 13.8 K/uL (4.8-10.8)
[2022-03-22 08:21] LABS: ANION GAP 9 (5-15); CALCIUM 7.6 mg/dL (8.4-11.0); CHLORIDE 118 mmol/L (98-107); GLUCOSE 240 mg/dL (70-99); POTASSIUM 4.2 mmol/L (3.5-5.1); SODIUM SERUM 150 mmol/L (136-145); UREA NITROGEN, BLOOD 38 mg/dL (8-21)
--- NOTE | 2022-03-22 08:55 | NUR ---
INCREASED FIO2 TO 50% PER ABG RESULTS, PO2 57.1 mmHg.
[2022-03-22] MEDS: METOCLOPRAMIDE HCL 10 MG TABLET PO SCH ×2 (09:28→21:29)
[2022-03-22] MEDS: PANTOPRAZOLE SODIUM 40 MG/VIAL (PROTONIX) IVP SCH (09:28)
[2022-03-22] MEDS: DORZOLAMIDE 2% OPHTHALMIC SOLN 5ML OP SCH ×2 (09:28→21:33)
[2022-03-22] MEDS ORDERED: HYDROCORTISONE SOD SUCC 100 MG/2 ML VIAL IVP ONE (09:30)
[2022-03-22] MEDS ORDERED: FLUCONAZOLE 200 mg/ NS 100 ML IV ONE (11:30)
--- NOTE | 2022-03-22 12:00 | NUR ---
HYGIENE TURNED AND REPOSITIONED PT IN BED, PERINEAL CARE, ORAL CARE DONE. CAREFULLY SUCTIONED VIA ET TUBE, MINIMAL AMOUNT OF SECRETIONS.
[2022-03-22] MEDS: NOREPINEPHRINE BITARTRATE 4 MG in NS 246 ML IV PRN (12:33)
[2022-03-22 12:50] LABS: BILIRUBIN,URINE NEGATIVE (NEGATIVE); BLOOD, URINE 3+ (NEGATIVE); COLOR,URINE YELLOW (YELLOW); GLUCOSE,URINE NEGATIVE (NEGATIVE); KETONES,URINE NEGATIVE (NEGATIVE); LEUKOCYTE ESTERASE ,URINE TRACE (NEGATIVE); NITRITE, URINE NEGATIVE (NEGATIVE); PROTEIN URINE 1+ (NEGATIVE); UROBILINOGEN,URINE 0.2 (0.2-1.0)
[2022-03-22 12:56] LABS: CLARITY/URINE SLIGHTLY HAZY (CLEAR)
[2022-03-22 14:30] LABS: BACTERIA,URINE FEW /HPF (None Seen)
[2022-03-22 14:31] LABS: MUCUS,URINE 1+ /LPF (None Seen)
--- NOTE | 2022-03-22 15:40 | NUR ---
FAMILY PT VISITED BY MELISSA MCINTOSH, WITH 2 OTHER FAMILY MEMBERS, STATED THAT THIS IS HIS FIRST TIME TO VISIT HIS GRANDMA.
[2022-03-22] MEDS: LATANOPROST 2.5 ML DROPS (XALATAN) OP SCH (21:30)
[2022-03-23] VITALS (36 sets, daily range): BP systolic 108–162
[2022-03-23] MEDS: NOREPINEPHRINE BITARTRATE 4 MG in NS 246 ML IV PRN (00:45)
[2022-03-23] MEDS: IPRATROPIUM/ALBUTEROL SULFATE 3 ML AMPUL.NEB (DUONEB) INH SCH ×6 (03:12→23:10)
[2022-03-23] MEDS: NACL 0.9% 1,000 ML IV SCH (04:07)
[2022-03-23] MEDS: PIPERACILLIN/TAZOBACTAM 2.25 GM/ DEX-IS 50 ML PREMIX IV SCH ×3 (05:44→21:57)
[2022-03-23] MEDS: LEVOTHYROXINE SODIUM 0.05 MG TABLET PO SCH (06:08)
[2022-03-23 07:01] LABS: BASOPHILS % (AUTO) 0.1 % (0.0-2.0); EOSINOPHILS % (AUTO) 0.1 % (0.0-4.0); HEMATOCRIT 30.3 % (36-48); HEMOGLOBIN 9.5 g/dL (12.0-16.0); LYMPHOCYTES # (AUTO) 0.4 K/uL (1.0-5.5); LYMPHOCYTES % (AUTO) 3.2 % (20.5-51.5); MEAN CORPUSCULAR HEMOGLOBIN 29 pg (27-31); MEAN CORPUSCULAR HGB CONC 32 % (32-36); MEAN CORPUSCULAR VOLUME 92 fL (79.0-98.0); MONOCYTES # (AUTO) 0.4 K/uL (0.0-1.0); MONOCYTES % (AUTO) 3.5 % (1.7-9.3); NEUTROPHILS # (AUTO) 11.6 K/uL (1.8-7.7); NEUTROPHILS % (AUTO) 93.1 % (40.0-70.0); PLATELET COUNT (AUTO) 145 K/uL (130-430); RED BLOOD CELL COUNT(AUTO) 3.31 MIL/uL (4.2-6.2); RED CELL DISTRIBUTION WIDTH 18.6 % (9.0-15.0); WHITE BLOOD COUNT (AUTO) 12.5 K/uL (4.8-10.8)
[2022-03-23 07:02] LABS: CALCIUM 7.5 mg/dL (8.4-11.0); GLUCOSE 235 mg/dL (70-99); POTASSIUM 4.3 mmol/L (3.5-5.1); SODIUM SERUM 152 mmol/L (136-145); UREA NITROGEN, BLOOD 33 mg/dL (8-21)
--- NOTE | 2022-03-23 08:00 | NUR ---
FLORENTINO GREEN NURSE IN CHARGE OF THIS PT//MW
[2022-03-23 08:08] LABS: ANION GAP 10 (5-15)
[2022-03-23 08:37] LABS: CHLORIDE 120 mmol/L (98-107)
[2022-03-23] MEDS: DORZOLAMIDE 2% OPHTHALMIC SOLN 5ML OP SCH ×2 (09:44→20:53)
[2022-03-23] MEDS: PANTOPRAZOLE SODIUM 40 MG/VIAL (PROTONIX) IVP SCH (09:44)
[2022-03-23] MEDS: HYDROCORTISONE SOD SUCC 100 MG/2 ML VIAL IVP SCH (09:44)
[2022-03-23] MEDS: METOCLOPRAMIDE HCL 10 MG TABLET PO SCH ×2 (09:45→20:53)
[2022-03-23] MEDS: LORazepam 2 MG/ML VIAL IVP PRN (10:09)
[2022-03-23] MEDS: FLUCONAZOLE 200 mg/ NS 100 ML IV SCH (11:31)
--- NOTE | 2022-03-23 12:36 | NUR ---
PT NEEDED SEDATION, BACK ON MORPHINE DRIP FOR A FEW HOURS, ATIVAN GIVEN, NO EFFECT, PT STILL HAS 94 OR GREAtER 02 sat//mw
--- NOTE | 2022-03-23 15:40 | NUR ---
pt becoming agitated, restarted versed drip at 2mg/h//mw
--- NOTE | 2022-03-23 19:15 | NUR ---
Opening notes Received report from endorsing morning shift S[facility]A Fuentes for continuity of care. Patient is lying in bed in no signs of distress with family members at the bedside. Patient have a RU PICC line running is NS @ 50mL/hr and versed @ 2mg/hr. Patient's vital signs blood pressure 128/52, heart rate 76, respirations 20, and SPO2 95% on ventilator. Ventilator settings PC rate 16, FIO2 60%, and peep of 5. Berger catheter is in place draining to gravity. Bed is locked and in lowest position, fall and safety precautions is in place.
[2022-03-23] MEDS: LATANOPROST 2.5 ML DROPS (XALATAN) OP SCH (20:53)
[2022-03-24] VITALS (32 sets, daily range): BP systolic 92–155
[2022-03-24] MEDS: IPRATROPIUM/ALBUTEROL SULFATE 3 ML AMPUL.NEB (DUONEB) INH SCH ×6 (02:30→22:18)
[2022-03-24] MEDS: LORazepam 2 MG/ML VIAL IVP PRN (03:27)
[2022-03-24] MEDS: MIDAZOLAM IN NACL,ISO-OSMOT/PF 100 ML IV PRN ×2 (05:12→19:57)
[2022-03-24 05:58] LABS: BASOPHILS % (AUTO) 0.1 % (0.0-2.0); EOSINOPHILS % (AUTO) 0.2 % (0.0-4.0); HEMATOCRIT 31.7 % (36-48); HEMOGLOBIN 10.1 g/dL (12.0-16.0); LYMPHOCYTES % (AUTO) 8.1 % (20.5-51.5); MEAN CORPUSCULAR HEMOGLOBIN 29 pg (27-31); MEAN CORPUSCULAR HGB CONC 32 % (32-36); MEAN CORPUSCULAR VOLUME 89 fL (79.0-98.0); MONOCYTES # (AUTO) 0.5 K/uL (0.0-1.0); MONOCYTES % (AUTO) 3.6 % (1.7-9.3); NEUTROPHILS # (AUTO) 11.4 K/uL (1.8-7.7); PLATELET COUNT (AUTO) 133 K/uL (130-430); RED BLOOD CELL COUNT(AUTO) 3.55 MIL/uL (4.2-6.2); RED CELL DISTRIBUTION WIDTH 18.3 % (9.0-15.0)
[2022-03-24] MEDS: LEVOTHYROXINE SODIUM 0.05 MG TABLET PO SCH (06:20)
[2022-03-24] MEDS: PIPERACILLIN/TAZOBACTAM 2.25 GM/ DEX-IS 50 ML PREMIX IV SCH ×4 (06:20→23:23)
[2022-03-24 06:33] LABS: ANION GAP 6 (5-15); CALCIUM 7.2 mg/dL (8.4-11.0); CREATININE 0.56 mg/dL (0.55-1.30); GLUCOSE 158 mg/dL (70-99); POTASSIUM 3.2 mmol/L (3.5-5.1); SODIUM SERUM 152 mmol/L (136-145); UREA NITROGEN, BLOOD 30 mg/dL (8-21)
[2022-03-24] MEDS: PROPOFOL DRIP 100 ML IV PRN (06:42)
--- NOTE | 2022-03-24 07:37 | NUR ---
RT NOTES 0737 Per ABG results, PO2 57.0, Increased fio2 to 90%. RN Evi aware. will continue to monitor pt.
[2022-03-24] MEDS: DORZOLAMIDE 2% OPHTHALMIC SOLN 5ML OP SCH ×2 (08:43→20:27)
[2022-03-24] MEDS: METOCLOPRAMIDE HCL 10 MG TABLET PO SCH ×2 (08:44→20:27)
[2022-03-24] MEDS: PANTOPRAZOLE SODIUM 40 MG/VIAL (PROTONIX) IVP SCH (08:44)
[2022-03-24 08:59] LABS: CHLORIDE 120 mmol/L (98-107)
[2022-03-24] MEDS: DESMOPRESSIN ACETATE 4 MCG/ML AMP SUBCUT SCH ×2 (09:30→20:58)
--- NOTE | 2022-03-24 09:33 | NUR ---
rt notes 0933 Dr diaz increased PEEP 8 and lowered down fio2 to 70%. pt saturating 95%. will continue to monitor pt. S[facility] warren.
[2022-03-24] MEDS ORDERED: MIDAZOLAM HCL 2 MG/2 ML VIAL (VERSED) IVP ONE (09:45)
[2022-03-24] MEDS ORDERED: DESMOPRESSIN ACETATE 4 MCG/ML AMP SUBCUT ONE (10:00)
[2022-03-24] MEDS: MORPHINE SULFATE IN 0.9 % NACL 100 ML IV PRN (10:12)
[2022-03-24] MEDS: FLUCONAZOLE 200 mg/ NS 100 ML IV SCH (12:14)
--- NOTE | 2022-03-24 13:00 | NUR ---
FAMILY CALL RECEIVED FROM LYUDMILA, (DPOA), SHE STATED THAT SHE HAD SPOKEN TO DR GRAY EARLIER TODAY. SHE UNDERSTANDS THAT THE PATIENT IS A DNR. CONVERSATION BROUGHT TO CHARGE NURSE. LYUDMILA STATED THAT SHE WILL BE SEEING THE PATIENT LATER AND WILL LET NURSING STAFF KNOW WHEN THE TIME TO GET THE PATIENT OFF THE VENTILATOR.
--- NOTE | 2022-03-24 18:50 | NUR ---
NURSING PAGED DR ISAAC MD RETURNED THE CALL. INFORMED THAT THE PERSON ON THE PT'S FILE (DPOA) LYUDMILA IS PRESENT IN THE ROOM. SHE AND HER DUC IN THE ROOM, WHO ARE HAVING DISCUSSION ON TAKING HER OFF THE VENTILATOR, WITH PT'S BROTHER AND SOME OF THE FAMILY MEMBERS. There is ongoing crisis between pt's family and DPOA that is not a family member about making decision on extubating pt.
--- NOTE | 2022-03-24 19:10 | NUR ---
OPENING NOTES: RECEIVED BEDSIDE REPORT FROM TYLER. PATIENT IS INTUBATED BUT NOT RESPONSIVE. PATIENT WAS PLACED A DNR TODAY AND THERE IS CONFUSION WITH THE DPOA AND THE FAMILY. STAFF IS NOT SURE WHO IS WHO AND PLACED AN ORDER FOR ALMOND PASTE MIXER TO COME AND ASSESS SITUATION. PATIENT VENT SETTING ARE PC 18, 70%, PEEP 8. PATIENT HAS A RIGHT PICC THAT IS PATENT AND HAS VERSED RUNNING AT 9 ML/HR, AND MORPHINE AT 4 MG/HR. PATIENT HAS SMALL SARMIENTO ON CHEST AND BACK FROM THE ADHESIVE OF PREVIOUS DEFIBRILLATOR, NO THER SKIN ISSUES. PATIENT HAS A MANZO THAT IS DRAINING. PATIENT HAS AN NG TUBE THAT HAS VITAL AF 1.2 RUNNING AT 45 ML/HR. BED IS AT THE LOWEST LEVEL, BRAKES ARE LOCKED,AND APPROPRIATE SIDE RAILS UP.
--- NOTE | 2022-03-24 20:43 | NUR ---
CALLED DR. NORRIS AND INFORMED HER OF THE SITUATION WITH THE FAMILY AND DPOA. INFORMED HER THAT THERE IS AN ORDER FOR EXTUBATION BUT WE ARE HOLDING IT AND PLACED AN ORDER FOR COATING MACHINE HELPER TO COME AND ASSESS. INFORMED HER OF THE CONFUSION AND ASKED FOR WHAT TO DO. SHE INFORMED ME TO JUST MAINTAIN THE PATIENT AND SHE WILL BE HERE TOMORROW FOR FURTHER EVALUATION.
[2022-03-24] MEDS ORDERED: DESMOPRESSIN ACETATE 4 MCG/ML AMP ONE (20:53)
[2022-03-24] MEDS: LATANOPROST 2.5 ML DROPS (XALATAN) OP SCH (20:57)
[2022-03-25] VITALS (33 sets, daily range): BP systolic 15–119
[2022-03-25] MEDS: IPRATROPIUM/ALBUTEROL SULFATE 3 ML AMPUL.NEB (DUONEB) INH SCH ×5 (03:05→20:45)
[2022-03-25] MEDS: PIPERACILLIN/TAZOBACTAM 2.25 GM/ DEX-IS 50 ML PREMIX IV SCH ×4 (05:16→23:11)
[2022-03-25] MEDS: MORPHINE SULFATE IN 0.9 % NACL 100 ML IV PRN (05:20)
[2022-03-25] MEDS: LEVOTHYROXINE SODIUM 0.05 MG TABLET PO SCH (06:46)
--- NOTE | 2022-03-25 07:34 | NUR ---
RT NOTES Pt. appears to desynchronized with the ventilator despite adjusting I-time and sensitivity settings. Rn made aware. FIO2 to 0.70 per titration order. No adverse reactions noted. Will monitor pt.
[2022-03-25] MEDS: MIDAZOLAM IN NACL,ISO-OSMOT/PF 100 ML IV PRN ×2 (07:36→16:17)
[2022-03-25 07:47] LABS: BASOPHILS % (AUTO) 0.2 % (0.0-2.0); EOSINOPHILS # (AUTO) 0.1 K/uL (0.0-0.4); EOSINOPHILS % (AUTO) 0.7 % (0.0-4.0); HEMATOCRIT 28.6 % (36-48); LYMPHOCYTES % (AUTO) 7.2 % (20.5-51.5); MEAN CORPUSCULAR HEMOGLOBIN 29 pg (27-31); MEAN CORPUSCULAR HGB CONC 32 % (32-36); MONOCYTES # (AUTO) 0.3 K/uL (0.0-1.0); MONOCYTES % (AUTO) 1.8 % (1.7-9.3); NEUTROPHILS % (AUTO) 90.1 % (40.0-70.0); PLATELET COUNT (AUTO) 76 K/uL (130-430); RED BLOOD CELL COUNT(AUTO) 3.12 MIL/uL (4.2-6.2); RED CELL DISTRIBUTION WIDTH 18.3 % (9.0-15.0); WHITE BLOOD COUNT (AUTO) 14.4 K/uL (4.8-10.8)
[2022-03-25 07:58] LABS: ANION GAP 6 (5-15); CALCIUM 7.2 mg/dL (8.4-11.0); CREATININE 0.64 mg/dL (0.55-1.30); GLUCOSE 152 mg/dL (70-99); POTASSIUM 3.6 mmol/L (3.5-5.1); SODIUM SERUM 153 mmol/L (136-145); UREA NITROGEN, BLOOD 35 mg/dL (8-21)
[2022-03-25 08:30] LABS: MEAN CORPUSCULAR VOLUME 92 fL (79.0-98.0)
[2022-03-25] MEDS: PANTOPRAZOLE SODIUM 40 MG/VIAL (PROTONIX) IVP SCH (08:38)
[2022-03-25] MEDS: DORZOLAMIDE 2% OPHTHALMIC SOLN 5ML OP SCH ×2 (08:38→21:17)
[2022-03-25] MEDS: METOCLOPRAMIDE HCL 10 MG TABLET PO SCH ×2 (08:38→21:17)
[2022-03-25] MEDS: DESMOPRESSIN ACETATE 4 MCG/ML AMP SUBCUT SCH ×2 (08:40→21:17)
[2022-03-25 09:28] LABS: CHLORIDE 121 mmol/L (98-107)
[2022-03-25] MEDS: FLUCONAZOLE 200 mg/ NS 100 ML IV SCH (10:38)
--- NOTE | 2022-03-25 13:45 | NUR ---
RT NOTES FIO2 TO 0.80 due to low sat, improvement noted. Will monitor pt.
--- NOTE | 2022-03-25 15:37 | NUR ---
FAMILY PT VISITED BY HER NIECE, TYE AND HER PRETTY WATSON, WHO LIVES IN [place], THEY LEFT THEIR PHONE NUMBER [phone], FOR MORE INFO.
--- NOTE | 2022-03-25 16:50 | NUR ---
MD DR DE OLIVEIRA AT BEDSIDE EXAMINING THE PATIENT.
[2022-03-25] MEDS: D5W 1,000 ML IV SCH (17:43)
--- NOTE | 2022-03-25 19:15 | NUR ---
OPENING NOTES: RECEIVED BEDSIDE REPORT FROM TYLER. PATIENT IS NONE RESPONSIVE. PATIENT IS ON THE VENT PC 18, 90%, 16, PEEP 8. PATIENT HAS D5 RUNNING AT 50 ML, VERSED RUNNING AT 9, AND MORPHINE RUNNING AT 5. PATIENT HAS A MANZO THAT IS DRAINAGE. BED IS AT THE LOWEST LEVEL, BRAKES ARE LOCKED, AND APPROPRIATE SIDE RAILS UP.
[2022-03-25] MEDS: LATANOPROST 2.5 ML DROPS (XALATAN) OP SCH (21:00)
[2022-03-25] MEDS ORDERED: DESMOPRESSIN ACETATE 4 MCG/ML AMP ONE (21:18)
[2022-03-26] VITALS (32 sets, daily range): BP systolic 93–108
[2022-03-26] MEDS: IPRATROPIUM/ALBUTEROL SULFATE 3 ML AMPUL.NEB (DUONEB) INH SCH ×7 (00:04→23:13)
[2022-03-26] MEDS: MORPHINE SULFATE IN 0.9 % NACL 100 ML IV PRN ×2 (01:16→21:33)
[2022-03-26] MEDS: PIPERACILLIN/TAZOBACTAM 2.25 GM/ DEX-IS 50 ML PREMIX IV SCH ×4 (05:20→23:51)
[2022-03-26] MEDS: MIDAZOLAM IN NACL,ISO-OSMOT/PF 100 ML IV PRN ×2 (05:22→21:34)
[2022-03-26] MEDS: LEVOTHYROXINE SODIUM 0.05 MG TABLET PO SCH (06:27)
[2022-03-26 07:25] LABS: ALANINE AMINOTRANSFERASE 40 U/L (12-78); ALBUMIN 1.3 g/dL (3.4-4.8); ANION GAP 8 (5-15); ASPARTATE AMINOTRANSFERASE 49 U/L (10-37); CALCIUM 7.7 mg/dL (8.4-11.0); CHLORIDE 118 mmol/L (98-107); CREATININE 0.73 mg/dL (0.55-1.30); GLUCOSE 163 mg/dL (70-99); POTASSIUM 3.9 mmol/L (3.5-5.1); SODIUM SERUM 150 mmol/L (136-145); TOTAL BILIRUBIN 0.3 mg/dL (0.0-1.0); UREA NITROGEN, BLOOD 48 mg/dL (8-21)
--- NOTE | 2022-03-26 07:30 | NUR ---
OPENING NOTES: RECEIVED BEDSIDE REPORT FROM PERRY. PT RESTING IN BED WITH HOB ELEVATED TO 45 DEGREES. PT INTUBATED WITH VENT SETTINGS: PC 18, RATE OF 20, 90% FI02, PEEP 8. PATIENT HAS PICC IN RIGHT UPPER ARM. D5W RUNNING AT 50 MLS/HR, VERSED AT 6MG/HR, AND MORPHINE AT 5 MLS/HR. MANZO IN PLACE WITH YELLOW URINE PRESENT, DRAINING TO GRAVITY. BED IN LOWEST POSITION, BED BRAKES ON, BED RAILS UP, CALL LIGHT WITHIN REACH.
[2022-03-26 08:38] LABS: BASOPHILS % (AUTO) 0.1 % (0.0-2.0); EOSINOPHILS % (AUTO) 0.2 % (0.0-4.0); HEMATOCRIT 27.7 % (36-48); HEMOGLOBIN 8.6 g/dL (12.0-16.0); LYMPHOCYTES # (AUTO) 0.8 K/uL (1.0-5.5); LYMPHOCYTES % (AUTO) 5.8 % (20.5-51.5); MEAN CORPUSCULAR HEMOGLOBIN 29 pg (27-31); MEAN CORPUSCULAR HGB CONC 31 % (32-36); MEAN CORPUSCULAR VOLUME 93 fL (79.0-98.0); MONOCYTES # (AUTO) 0.3 K/uL (0.0-1.0); MONOCYTES % (AUTO) 1.8 % (1.7-9.3); NEUTROPHILS # (AUTO) 13.3 K/uL (1.8-7.7); NEUTROPHILS % (AUTO) 92.1 % (40.0-70.0); RED BLOOD CELL COUNT(AUTO) 2.98 MIL/uL (4.2-6.2); WHITE BLOOD COUNT (AUTO) 14.4 K/uL (4.8-10.8)
[2022-03-26] MEDS: METOCLOPRAMIDE HCL 10 MG TABLET PO SCH ×2 (09:30→20:27)
[2022-03-26] MEDS: DESMOPRESSIN ACETATE 4 MCG/ML AMP SUBCUT SCH ×2 (09:30→20:28)
[2022-03-26] MEDS: DORZOLAMIDE 2% OPHTHALMIC SOLN 5ML OP SCH ×2 (09:30→20:27)
[2022-03-26] MEDS: PANTOPRAZOLE SODIUM 40 MG/VIAL (PROTONIX) IVP SCH (09:30)
[2022-03-26] MEDS: FLUCONAZOLE 200 mg/ NS 100 ML IV SCH (10:00)
--- NOTE | 2022-03-26 10:00 | NUR ---
RT NOTES Dr Shirley nunez now, aware FIO2 had been increased since yesterday due to low saturation. Ordered ABG.
--- NOTE | 2022-03-26 10:28 | NUR ---
RT NOTES Changed vent to rate of [address] Watson's order. FIO2 to 0.90 per abg result. RN made aware.
[2022-03-26] MEDS ORDERED: ALBUMIN HUMAN 25% 100 ML IV ONE (12:45)
[2022-03-26] MEDS ORDERED: VANCOMYCIN HCL 1 GM/NS PREMIX 250 ML IV ONE (13:30)
[2022-03-26] MEDS: D5W 1,000 ML IV SCH (13:30)
[2022-03-26 14:18] LABS: PLATELET COUNT (AUTO) 58 K/uL (130-430)
--- NOTE | 2022-03-26 17:00 | NUR ---
POSSIBLE EXTUBATION PLAN: SPOKE WITH PT NAZ SANCHEZ WITH [facility] TRANSLATING IN [place]. DANIEL WOULD LIKE TO WAIT UNTIL SundayMarch TO EXTUBATE PT. DANIEL WILL SPEAK WITH THE REST OF HIS FAMILY TO CONFIRM THIS DATE. I THEN SPOKE TO THE DPOA'S SHANNON. THEY SAID SUNDAY IS OKAY TO EXTUBATE THE PT IF THE FAMILY AGREES. DR CHRISTIANSEN PAGED TO INCLUDE IN THE PLAN.
--- NOTE | 2022-03-26 18:41 | NUR ---
SPOKE WITH DR GRAY REGARDING EXTUBATION ADVISED THAT THE TENTATIVE PLAN TO EXTUBATE PT IS March. FAMILY HAS AGREED, BUT WILL NEED TO CONFIRM ON SUNDAY ([facility]) AND THE DPOA'S HAVE ALSO AGREED ON SUNDAY. THE DPOA'S STATED THEY DID NOT WANT TO BE PRESENT. THE DPOA'S ALSO WILL NEED TO BE CALLED TO CONFIRM. DR GRAY STATED TO LET DR SIERRA KNOW.
--- NOTE | 2022-03-26 19:00 | NUR ---
Opening notes Received report from endorsing morning shift RN Anai for continuity of care. Patient is lying in bed in no signs of distress with IVF NS @ 50mL/hr, versed drip @ 6mL/hr, and morphine drip @5mL/hr. Patient's vital signs blood pressure 96/57, heart rate 83, respirations 19, and SPo2 94% on ventilator. Vent settings: PC 16, rate 20, FIO2 90%, and peep of 8. Berger catheter is in place draining to gravity, yellow in color. Bed is locked and in lowest position, fall and safety precautions is in place.
[2022-03-26] MEDS: LATANOPROST 2.5 ML DROPS (XALATAN) OP SCH (20:27)
[2022-03-27] VITALS (30 sets, daily range): BP systolic 86–126
[2022-03-27] MEDS: IPRATROPIUM/ALBUTEROL SULFATE 3 ML AMPUL.NEB (DUONEB) INH SCH ×6 (03:42→23:27)
[2022-03-27] MEDS: PIPERACILLIN/TAZOBACTAM 2.25 GM/ DEX-IS 50 ML PREMIX IV SCH ×3 (06:06→18:04)
[2022-03-27] MEDS: LEVOTHYROXINE SODIUM 0.05 MG TABLET PO SCH (06:19)
[2022-03-27 07:51] LABS: ALANINE AMINOTRANSFERASE 46 U/L (12-78); ALBUMIN 1.1 g/dL (3.4-4.8); ANION GAP 9 (5-15); ASPARTATE AMINOTRANSFERASE 49 U/L (10-37); CHLORIDE 113 mmol/L (98-107); CREATININE 1.05 mg/dL (0.55-1.30); GLUCOSE 137 mg/dL (70-99); POTASSIUM 4.5 mmol/L (3.5-5.1); SODIUM SERUM 146 mmol/L (136-145); TOTAL BILIRUBIN 0.2 mg/dL (0.0-1.0); UREA NITROGEN, BLOOD 65 mg/dL (8-21)
--- NOTE | 2022-03-27 08:00 | NUR ---
FLORENTINO VARGAS IS IN CHARGE OF THIS PATIENT/MW
[2022-03-27] MEDS: D5W 1,000 ML IV SCH (08:35)
[2022-03-27] MEDS: DORZOLAMIDE 2% OPHTHALMIC SOLN 5ML OP SCH ×2 (08:40→20:46)
[2022-03-27] MEDS: PANTOPRAZOLE SODIUM 40 MG/VIAL (PROTONIX) IVP SCH (08:45)
[2022-03-27] MEDS: METOCLOPRAMIDE HCL 10 MG TABLET PO SCH ×2 (08:45→20:46)
[2022-03-27] MEDS: DESMOPRESSIN ACETATE 4 MCG/ML AMP SUBCUT SCH ×2 (08:49→20:47)
--- NOTE | 2022-03-27 11:00 | NUR ---
PT IS VERY OBTUNDED, ON MORPHINE AND VERSED DRIPS/TOLERATING VENT//MW
[2022-03-27] MEDS: FLUCONAZOLE 200 mg/ NS 100 ML IV SCH (12:01)
--- NOTE | 2022-03-27 12:14 | NUR ---
[employer] PERFECT BIND MACHINE OPERATOR called to speak to haseeb, Maggie, who was asking about the POA, neighbor. Maggie stated her and pts. brothers and extended family don't know what the intentions are of this neighbor. Maggie asked if there was a notorized, signed document stating neighbor was the DPOA. Another question Maggie has was if the doctors have tried to wean pt. off the vent to see how she tolerates breathing on her own. PERFECT BIND MACHINE OPERATOR asked if she would like to speak to the doctor. Maggie stated that would be helpful. PERFECT BIND MACHINE OPERATOR shared with Maggie that the doctors progress notes from today were the prognosis was poor and the plan was terminal extubation, but validated her concern. PERFECT BIND MACHINE OPERATOR called Rn. Fonseca to see if he was available to speak to Maggie. Raymundo stated he would speak to Maggie. PERFECT BIND MACHINE OPERATOR transferred Maggie to speak to Raymundo in ICU. PERFECT BIND MACHINE OPERATOR will remain available as needed.
--- NOTE | 2022-03-27 15:00 | NUR ---
BP DROPPING, DECREased, VERSED TO 2MG/H MW
[2022-03-27] MEDS: MIDAZOLAM IN NACL,ISO-OSMOT/PF 100 ML IV PRN (18:02)
--- NOTE | 2022-03-27 19:00 | NUR ---
Opening notes Received report from endorsing morning shift RN Raymundo for continuity of care. Patient is lying in bed with SPO2 and blood pressure dropping. Patient's vital signs blood pressure 89/43, heart rate 81, respirations 21, and SPO2 84% on ventilator. Vent settings: PC 18, rate 20, FIO2 100%, and peep of 8. Berger catheter is in place draining to gravity. Bed is locked and in lowest position, fall and safety precautions is in place.
[2022-03-27] MEDS: MORPHINE SULFATE IN 0.9 % NACL 100 ML IV PRN (19:46)
[2022-03-27] MEDS ORDERED: NOREPINEPHRINE 4 MG/4 ML VIAL IV ONE (19:55)
[2022-03-27] MEDS: NOREPINEPHRINE BITARTRATE 4 MG in NS 246 ML IV PRN (19:58)
[2022-03-27] MEDS: LATANOPROST 2.5 ML DROPS (XALATAN) OP SCH (20:46)
[2022-03-28] VITALS (8 sets, daily range): BP systolic 83–103
[2022-03-28] MEDS ORDERED: NOREPINEPHRINE 4 MG/4 ML VIAL IV ONE ×2 (01:59→05:47)
[2022-03-28] MEDS: NOREPINEPHRINE BITARTRATE 4 MG in NS 246 ML IV PRN ×2 (02:02→05:58)
[2022-03-28] MEDS: IPRATROPIUM/ALBUTEROL SULFATE 3 ML AMPUL.NEB (DUONEB) INH SCH (03:34)
[2022-03-28] MEDS: D5W 1,000 ML IV SCH (05:21)
--- NOTE | 2022-03-28 05:50 | NUR ---
Family Called Family regarding patient's condition.
--- NOTE | 2022-03-28 06:26 | NUR ---
MD Called the ER MD to confirm if the patient still have pulse. ER MD asked RN to get a magnet for the pacemaker. At 06 ER MD at bedside confirmed that the pt does not have pulse and announced pt is . Addendum: 03/28/22 at 0658 by Justine Miner RN Patient is DNR.
--- NOTE | 2022-03-28 06:56 | NUR ---
[facility] Called kary meng. Record referral # [id number] Elisabeth Barber. Record referral # [id number] Addendum: 03/28/22 at 0710 by Justine Miner RN [facility] record referral #
--- NOTE | 2022-03-28 07:10 | NUR ---
NOTIFIED OF PT EXPIRATION [phone] -SPOKE TO: /MARCH [phone] -SPOKE TO: Sully ACOSTA [phone] -SPOKE TO: RAMSES HOWARD [phone] -SPOKE TO: CHINO
--- NOTE | 2022-03-28 07:30 | NUR ---
CHANTAL CALLED THE IMPLEMENTATION ADVISOR AT 0730. SPOKE WITH KADE. REF # [id number]. IMPLEMENTATION ADVISOR HAS RELEASED THE BODY. THIS IS NOT A IMPLEMENTATION ADVISOR'S CASE.
[2022-03-28 07:48] LABS: ALANINE AMINOTRANSFERASE 305 U/L (12-78); ALBUMIN 1.5 g/dL (3.4-4.8); ASPARTATE AMINOTRANSFERASE 619 U/L (10-37); CALCIUM 7.8 mg/dL (8.4-11.0); CHLORIDE 101 mmol/L (98-107); CREATININE 1.85 mg/dL (0.55-1.30); GLUCOSE 140 mg/dL (70-99); TOTAL BILIRUBIN 0.8 mg/dL (0.0-1.0); UREA NITROGEN, BLOOD 77 mg/dL (8-21)
[2022-03-28 08:15] LABS: SODIUM SERUM 119 mmol/L (136-145)
[2022-03-28 08:17] LABS: ANION GAP < 3 (5-15); POTASSIUM 6.3 mmol/L (3.5-5.1)
--- NOTE | 2022-03-28 09:40 | NUR ---
SPOKE WITH ROSEMARY, A FAMILY MEMBER OF THE PT. SHE IS REQUESTING THE PHONE NUMBER OF THE DPOA'S. SPOKE WITH ONE OF THE DPOA'S DUC BRANDT, AND HE STATED THEY ARE SPEAKING WITH THE FAMILY MEMBER THOMAS TO COORDINATE ARRANGEMENTS. I ADVISED ROSEMARY OF THIS INFORMATION AND SHE STATED SHE WOULD SPEAK WITH THOMAS.
--- NOTE | 2022-03-28 11:25 | NUR ---
RECEIVED BEDSIDE REPORT FROM MOVERS RN AT 0730. PT TOD 0626. POST MORTEM CARE COMPLETE AND PT HAS BEEN TAKEN TO THE [facility] [place] AND HER BELONGINGS. THE DPOA'S WILL BE PICKING UP HER BELONGINGS LATER TODAY. THE RECORD OF WAS COMPLETE AND GIVEN TO THE LUMBER PULLER.
== END 2022-03-28 06:26 | DRG 981 ==
LOC: SED 15:44 → SIC 17:18
PROVIDERS: ADMIT Internal Medicine Hospice and Palliative Medicine; ATTEND Internal Medicine Hospice and Palliative Medicine
PROC: 02HV33Z Insertion of Infusion Device into Superior Vena Cava, Percutaneous Approach (ICD-10-PCS; 2022-03-15)
PROC: B548ZZA Ultrasonography of Superior Vena Cava, Guidance (ICD-10-PCS; 2022-03-15)
PROC: 0BH17EZ Insertion of Endotracheal Airway into Trachea, Via Natural or Artificial Opening (ICD-10-PCS; principal; 2022-03-16)
PROC: 5A1945Z Respiratory Ventilation, 24-96 Consecutive Hours (ICD-10-PCS; 2022-03-16)
PROC: 02HV33Z Insertion of Infusion Device into Superior Vena Cava, Percutaneous Approach (ICD-10-PCS; 2022-03-16)
PROC: B548ZZA Ultrasonography of Superior Vena Cava, Guidance (ICD-10-PCS; 2022-03-16)
PROC: 0JH606Z Insertion of Pacemaker, Dual Chamber into Chest Subcutaneous Tissue and Fascia, Open Approach (ICD-10-PCS; 2022-03-18)
PROC: 02H63JZ Insertion of Pacemaker Lead into Right Atrium, Percutaneous Approach (ICD-10-PCS; 2022-03-18)
PROC: 02HK3JZ Insertion of Pacemaker Lead into Right Ventricle, Percutaneous Approach (ICD-10-PCS; 2022-03-18)
PROC: B517ZZA Fluoroscopy of Left Subclavian Vein, Guidance (ICD-10-PCS; 2022-03-18)
PROC: 5A09357 Assistance with Respiratory Ventilation, Less than 24 Consecutive Hours, Continuous Positive Airway Pressure (ICD-10-PCS; 2022-03-19)
PROC: 5A1955Z Respiratory Ventilation, Greater than 96 Consecutive Hours (ICD-10-PCS; 2022-03-20)
PROC: 0BH17EZ Insertion of Endotracheal Airway into Trachea, Via Natural or Artificial Opening (ICD-10-PCS; 2022-03-20)
DX: J96.01 Acute respiratory failure with hypoxia (principal); J18.9 Pneumonia, unspecified organism; E43 Unspecified severe protein-calorie malnutrition; J15.9 Unspecified bacterial pneumonia; Z99.11 Dependence on respirator [ventilator] status; N17.9 Acute kidney failure, unspecified; I44.2 Atrioventricular block, complete; N39.0 Urinary tract infection, site not specified; I44.1 Atrioventricular block, second degree; E83.52 Hypercalcemia; D64.9 Anemia, unspecified; E88.09 Other disorders of plasma-protein metabolism, not elsewhere classified; Y95 Nosocomial condition; K21.9 Gastro-esophageal reflux disease without esophagitis; E83.51 Hypocalcemia; R73.9 Hyperglycemia, unspecified; Z20.822 Contact with and (suspected) exposure to COVID-19; R74.01 Elevation of levels of liver transaminase levels; E03.9 Hypothyroidism, unspecified; E83.41 Hypermagnesemia; E87.6 Hypokalemia; I25.10 Atherosclerotic heart disease of native coronary artery without angina pectoris; I49.5 Sick sinus syndrome; I48.91 Unspecified atrial fibrillation; Z79.899 Other long term (current) drug therapy
CPT/HCPCS: 36415; 36600; 71045; 76000; 76770; 80048; 80053; 81000; 82803-TC; 82962; 83735; 83880; 84100; 84132; 84439; 84443; 84484; 85025; 85610-TC; 85730-TC; 87040; 87081; 87086; 92610-GN; 93005; 93306; 94002; 94003; 94640; 94660; 96374; 99291; C1786; C1893; C1898; C9113; J0171; J0330; J0690; J1100; J1265; J1450; J1720; J1940; J2060; J2250; J2270; J2543; J2597; J2704; J3370; J3465; J3480; J7050; J8597; Q9965